=== PATIENT | female | born 1960 ===

== ENCOUNTER 2017-09-03 08:59 | Emergency (ER) | payer MEDICAID ==
[2017-09-03 09:05] VITALS: TEMP 98.9; O2SAT 98
[2017-09-03] MEDS ORDERED: Tetanus/Diphtheria Toxoids 0.5 ml Syringe IM ONE ×2 (09:24→09:34)
--- NOTE | 2017-09-03 09:24 | C.PDOC ---
History Of Present Illness 57 year old female presents to the ED for evaluation of bilateral hand injury onset this morning. Patient states a window fell onto her right 3rd and 4th and left 3rd finger. Patient is complaining of an abrasion to her right 3rd finger at cuticle and bruising to left 3rd finger. Patient states she is right-handed. She denies other associated symptoms. b/l hand injury onset this morning. PS WINDOW FELL ONTO R 3,4 AND L 3 FINGER. CO ABRASION R 3 FINGER @ CUTICLE, BRUISING L 3 FINGER. R HANDED. DENIES OTHER ASSOC SX EXAM NAD EXT R HAND NO GROSS DEFORM; NO GROSS TENDON DEF, AROM WO DIFF. LIMITED EVAL NAIL DUE TO NAILPOL[place]. L HAND NO GROSS DEFORM, AROM WO GROSS TENDON DEF; BRUISING TIP L 3 FINGER. SKIN +ABRASION cuticle lINE R 3 FINGER NO ACTIVE BLEEDING. NEURO NO FOCAL DEF REMAINDER NEG MDM XRAYS NEG Time Seen by Provider: 09/03/17 09:14 Chief Complaint (Nursing): Upper Extremity Problem/Injury History Per: Patient History/Exam Limitations: no limitations Onset/Duration Of Symptoms: Hrs Current Symptoms Are (Timing): Still Present Quality: "Pain" Additional History Per: Patient Past Medical History Reviewed: Historical Data, Nursing Documentation, Vital Signs Vital Signs: Last Vital Signs Temp 98.9 F 09/03/17 09:03 Pulse 68 09/03/17 09:53 Resp 20 09/03/17 09:53 BP 130/85 09/03/17 09:53 Pulse Ox 98 09/03/17 10:36 - Medical History PMH: No Chronic Diseases Surgical History: No Surg Hx Family History: States: Unknown Family Hx - Social History Hx Alcohol Use: No Hx Substance Use: No - Immunization History Hx Tetanus Toxoid Vaccination: No Hx Influenza Vaccination: No Hx Pneumococcal Vaccination: No Review Of Systems Skin: Positive for: Other (bilateral hand injury ) Physical Exam - Physical Exam Appears: Non-toxic, No Acute Distress Skin: Normal Color, Warm, Dry, Other (abrasion to at cuticle inner R 3rd finger. no active bleeding ) Extremity: Normal ROM, Capillary Refill (less than 2 seconds ) Neurological/Psych: Oriented x3, Normal Speech, Normal Cognition, Other (no focal deficits ) ED Course And Treatment O2 Sat by Pulse Oximetry: 98 (on RA) Pulse Ox Interpretation: Normal Progress Note: Bilateral hand XR ordered and reviewed. Tetanus IM, Bacitracin TOP, and Tylenol PO administered. Medical Decision Making Medical Decision Making: XRAYS NEG Disposition Counseled Patient/Family Regarding: Studies Performed, Diagnosis, Need For Followup - Disposition Referrals: [facility] [Outside] [facility] [Outside] Disposition: HOME/ ROUTINE Disposition Time: 09:41 Condition: IMPROVED Instructions: Wound Care (DC), Contusion (DC) Forms: [facility] (Sami), Work Excuse - Clinical Impression Clinical Impression: Finger contusion, Finger abrasion - Scribe Statement The provider has reviewed the documentation as recorded by the Scribe (Maria Alejandra Lao) Provider Attestation: All medical record entries made by the Scribe were at my direction and personally dictated by me. I have reviewed the chart and agree that the record accurately reflects my personal performance of the history, physical exam, medical decision making, and the department course for this patient. I have also personally directed, reviewed, and agree with the discharge instructions and disposition. Orthopedic Care Application Of:: Finger Splint
[2017-09-03] MEDS ORDERED: Bacitracin Ointment 30 GM TUBE TOP STA (09:30)
[2017-09-03] MEDS ORDERED: Bacitracin 500 Units/gm Oint Foilpak UD ONE (09:35)
[2017-09-03 09:54] VITALS: BP 130/85; PULSE 68; RESP 20
--- NOTE | 2017-09-03 11:37 | RAD ---
PROCEDURE: Bilateral hand radiographs. HISTORY: TRAUMA COMPARISON: None. FINDINGS: BONES: Right Hand: Normal. No osteoarthritic changes. Left Hand: Normal. No osteoarthritic changes. JOINTS: Right Hand: Normal. Left Hand: Normal. SOFT TISSUES: Right Hand: Nodular soft tissue calcification along the radial aspect of the distal carpal row. Uncertain significance. Smoothly corticated ossific density along the palmar aspect of the base of the 2nd metacarpal, uncertain significance. Left Hand: Normal. OTHER FINDINGS: None. IMPRESSION: No acute fracture. Incidental nodular calcification along the radial aspect of the distal carpal row in the left wrist, uncertain significance.Smoothly corticated ossific density along the palmar aspect of the base of the 2nd metacarpal, uncertain significance.
== END 2017-09-03 09:59 | disposition home or self-care (01) ==
LOC: C.ER 08:59
DX: S60.032A Contusion of left middle finger without damage to nail, initial encounter (principal); S60.412A Abrasion of right middle finger, initial encounter; W22.8XXA Striking against or struck by other objects, initial encounter

== ENCOUNTER 2018-01-21 08:33 | Emergency (ER) | payer MEDICAID ==
[2018-01-21 09:07] VITALS: TEMP 98
[2018-01-21 09:46] LABS: URINE BACTERIA MANY (<OCC); URINE BILIRUBIN NEGATIVE (NEGATIVE); URINE BLOOD 1+ (NEGATIVE); URINE CLARITY Clear (Clear); URINE COLOR Yellow (YELLOW); URINE GLUCOSE (UA) NORMAL (Normal); URINE LEUKOCYTE ESTERASE NEG Leu/uL (Negative); URINE PROTEIN NEGATIVE (NEGATIVE); URINE UROBILINOGEN NORMAL mg/dL (0.2-1.0)
--- NOTE | 2018-01-21 10:38 | C.PDOC ---
History Of Present Illness 57 year old female presents to ED for evaluation of right lower back pain since last night. Notes pain is worse when laying down and when walking. Denies trauma, injury, heavy lifting, bowel or bladder incontinence/retention, paresthesia, focal weakness, sensory deficit, hematuria, or dysuria. Time Seen by Provider: 01/21/18 09:17 Chief Complaint (Nursing): Back Pain History Per: Patient History/Exam Limitations: no limitations Onset/Duration Of Symptoms: Days Current Symptoms Are (Timing): Still Present Quality Of Discomfort: "Pain" Previous Symptoms: Back Pain. denies: Prior Injury, Prior Surgery Associated Symptoms: None. denies: Incontinence, New Weakness, New Numbness Exacerbating Factor(s): Other (laying down, walking) Recent travel outside of the [place]: No Additional History Per: Patient Past Medical History Reviewed: Historical Data, Nursing Documentation, Vital Signs Vital Signs: Last Vital Signs Temp 98 F 01/21/18 09:00 Pulse 88 01/21/18 09:00 Resp 20 01/21/18 09:00 BP 124/79 01/21/18 09:00 Pulse Ox 95 01/21/18 09:00 Family History: States: Unknown Family Hx - Social History Hx Alcohol Use: Yes Hx Substance Use: No - Immunization History Hx Tetanus Toxoid Vaccination: No Hx Influenza Vaccination: No Hx Pneumococcal Vaccination: No Review Of Systems Except As Marked, All Systems Reviewed And Found Negative. Constitutional: Negative for: Fever, Chills Gastrointestinal: Negative for: Nausea, Vomiting, Abdominal Pain Genitourinary: Negative for: Dysuria, Frequency, Incontinence, Hematuria, Vaginal Discharge Musculoskeletal: Positive for: Back Pain. Negative for: Leg Pain Neurological: Negative for: Weakness, Numbness Physical Exam - Physical Exam Appears: Non-toxic, No Acute Distress Skin: Normal Color, Warm, Dry, No Rash Head: Atraumatic, Normacephalic Eye(s): bilateral: Normal Inspection Oral Mucosa: Moist Neck: Normal ROM, Supple Chest: Symmetrical Cardiovascular: Rhythm Regular, No Friction Rub, No Murmur Respiratory: Normal Breath Sounds, No Rales, No Rhonchi, No Wheezing Gastrointestinal/Abdominal: Soft, No Tenderness Back: No CVA Tenderness, No Vertebral Tenderness, Paraspinal Tenderness (right paralumbar) Extremity: Normal ROM, No Tenderness, No Deformity, No Swelling Neurological/Psych: Oriented x3, Normal Speech, Normal Motor, Normal Sensation Gait: Steady ED Course And Treatment O2 Sat by Pulse Oximetry: 95 (RA) Pulse Ox Interpretation: Normal Medical Decision Making Medical Decision Making: Plan: * Urinalysis * Toradol * Prednisone On re-exam, the patient reports improvement of symptoms. Lungs are CTA, heart is RRR, abdomen is soft, non-tender and tolerating PO well. Patient is ambulatory in the ED with steady gait. Follow up with the medical doctor within 1-2 days. Return if worsened. Disposition - Disposition Referrals: Cisco Spivey MD [Non-Staff] - Disposition: HOME/ ROUTINE Disposition Time: 11:01 Condition: STABLE Additional Instructions: Follow up with the medical doctor within 1-2 days. Return if worsened. Prescriptions: diaZEpam [Valium] 5 mg PO TID #21 tab Naproxen [Naprosyn] 500 mg PO BID #20 tab predniSONE [Prednisone] 10 mg PO BID #10 tab Instructions: Low Back Pain in Adults Forms: [facility] (Sinhala), Work Excuse - Clinical Impression Clinical Impression: Low back pain - PA / RN BARIATRIC / Resident Statement MD/DO has reviewed & agrees with the documentation as recorded. - Scribe Statement The provider has reviewed the documentation as recorded by the Scribe KP All medical record entries made by the Scribe were at my direction and personally dictated by me. I have reviewed the chart and agree that the record accurately reflects my personal performance of the history, physical exam, medical decision making, and the department course for this patient. I have also personally directed, reviewed, and agree with the discharge instructions and disposition.
[2018-01-21 11:26] VITALS: BP 126/80; PULSE 78; RESP 18
[2018-01-21 17:36] VITALS: O2SAT 95
== END 2018-01-21 11:28 | disposition home or self-care (01) ==
LOC: C.ER 08:33
DX: M54.5 Low back pain (principal)
CPT/HCPCS: 81001; 96372; 99283; J1885